=== PATIENT | female | born 1950 | race Caucasian/White ===

== ENCOUNTER → 2018-06-13 | Outpatient (CLI) | payer MEDICARE, OTHER ==
[~2018-06-13] MED LIST: CITA40TA12 PO; DOCU-131 PO; ESTR0.5T PO; IBUP-1222 PO; KRIL500C PO; ONDA4TAB7; OSEL75CA; OXYC-302 PO; PRAV40TA2 PO; PROG100C16 PO; PROM6.256; [UNRECOGNIZED DRUG - OTHER] PO; estrogen PO
== END | disposition home or self-care (01) ==
LOC: CFH 14:21
PROVIDERS: ATTEND Internal Medicine
DX: R91.1 Solitary pulmonary nodule (principal); J84.10 Pulmonary fibrosis, unspecified
CPT/HCPCS: 71250